=== PATIENT | female | born 1990 ===

== ENCOUNTER 2021-02-02 03:02 | Inpatient (IN) | payer OTHER ==
[~2021-02-02] VITALS: Ht 152.4 cm; Wt 61.4 kg
[2021-02-02] VITALS (55 sets, daily range): BP systolic 89–169; BP diastolic 51–96
[2021-02-02] MEDS ORDERED: PREN1CHW6 PO (03:22)
[2021-02-02] MEDS ORDERED: LR 1,000 ML IV SCH ×2 (04:05→16:35)
[2021-02-02] MEDS ORDERED: OXYTOCIN INJ 10 UNITS/ML VIAL (J2590) IV PRN (04:05)
[2021-02-02] MEDS ORDERED: OXYTOCIN DRIP 30 UNITS in IV 1 EA IV PRN ×5 (04:05→14:30)
[2021-02-02] MEDS ORDERED: LACTATED RINGER'S 1000 ML IV ONE (04:05)
[2021-02-02 04:54] LABS: HEMATOCRIT 33.2 % (36.0-47.0); HEMOGLOBIN 11.6 g/dl (12.0-15.5); MEAN CORPUSCULAR HEMOGLOBIN 30.9 pg (27.0-33.0); MEAN CORPUSCULAR HGB CONC 34.9 g/dl (32.0-36.5); MEAN CORPUSCULAR VOLUME 88.3 fl (80.0-96.0); PLATELET COUNT, AUTOMATED 192 10^3/uL (150-450); RED BLOOD COUNT 3.76 10^6/uL (4.00-5.40); WHITE BLOOD COUNT 13.8 10^3/uL (4.0-10.0)
[2021-02-02] MEDS ORDERED: CALCIUM CARBONATE 500 MG CHEW U/D PO ONE (05:00)
--- NOTE | 2021-02-02 05:05 | HPEPDOC ---
Obstetrical History & Physical General Date of Admission Item Value Date Time White Blood Count 13.8 10^3/uL H 02/02/219 Red Blood Count 3.76 10^6/uL L 02/02/21448 Hemoglobin 11.6 g/dl L 02/02/21448 Hematocrit 33.2 % L 02/02/21448 Mean Corpuscular Volume 88.3 fl 02/02/21448 Mean Corpuscular Hemoglobin 30.9 pg 02/02/21448 Mean Corpuscular Hemoglobin Concent 34.9 g/dl 02/02/21448 Red Cell Distribution Width 11.9 % 02/02/21448 Platelet Count 192 10^3/uL 02/02/21448 Vital Signs Label Value Date Time Patient Temperature 97.6 degrees F 02/02/21318 Temperature Source Temporal 02/02/21318 Pulse 95 02/02/21318 Respiratory Rate 18 bpm 02/02/21318 Blood Pressure Assessment 109/78 (88) 02/02/21318 Source Automatic Cuff (NIBP) Primary Care Physician: Aidan Deutsch MD History of Present Illness 02/02/21 0400 AM G1 PO AT 41 WEEKS ACTIVE LABOR WAS BOOKED IOL CAME IN SPONTANEOUS LABOR. LMP 04/21/20 EDC BY US AT 11 WEEKS 01/26 2021 . 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 Past Medical History Medical History CF 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 , LATENT TB 2006 Surgical History: Other (BREAST BX BENIGN RT., BILATERAL TOENAIL REMOVAL) Family History Significant Family History: Other (MOTHER PE AND ASTHMA, GRAND MOTHER ALS, GRAND FATHER TESTICULAR CANCER, GRAND MERE PANCREATIC CANCER) Social History Social history NON SMOKER NO ETOH NO VAPING TO AD GOOD SUPPORT Marital Status: Family situation: Spouse/partner home Psychosocial History: No pertinent psych hx * Smoker: non-smoker Alcohol: Denies Drugs: denies Abuse Violence Screening Have you been hit/kicked/slapp: No Have you been sexually assault: No Imunizations Tdap status: current Influenza Status: current Allergies Coded Allergies: No Known Allergies (Unverified , 02/02/21) Medications Scheduled Vit37/Iron/Folic Acid (Prenata Chewable Tablet) 1 Each Tab.chew, 1 TAB PO DAILY Physical Examination Physical Examination GENERAL: Alert and oriented times three. BREAST: . ABDOMEN: Gravid and non-tender to touch. FETUS: Is vertex (VTX) by sterile vaginal examination (SVE), fetus is vertex (VTX) by Kun. HEART RATE: Regular rate and rhythm. LUNGS: Clear to auscultation (CTA). EXTREMITIES: No edema. No clonus. Deep tendon reflexes (DTRs) + . Other physical findings NORMOCEPHALIC ATRAUMATIC NECK FULL RANGE OF MOTION, PERRLA, CHEST CLEAR TO BASES NO RALES NO RHONCHI, NO CVA TENDERNESS, SF HEIGHT 40 4 QUADRANT BOWEL SOUNDS CATEGORY 1 STRIP NOW HAD LATES WITH RECOVERY TO BASELINE. NO RASHES LESIONS OR PURITIS, NO MYALGIA NO JOINT PAIN, NO COMPLAINTS OF COUGH WHEEZE NO FREQUENCY URGENCY,NO N/V/C/D/F. NO DIABETIC ISSUES Pertinent Laboratoy Data Blood Type: O- RBC Antibody Screen: Negative HIV: Negative Hepatitis B: Negative Rapid Plasma Reagin: Nonreactive Rubella: Nonreactive Varicella: Immune Chlamydia/Gonorrhea: Negative Group B Streptococcus: Negative Quad Screen Test: Unknown Cystic Fibrosis: Negative Anatomy Ultrasound Ultrasound Date: Oct 07, 2020 Placenta Location: Anterior Normal Anatomy: Yes Placenta Previa: No Estimated Weight (grams): 617 Steroid Therapy Steroid Therapy: No Vaginal Examination Dilation: Fingertip Effacement: 50% Station: -3 Cervical Consistency: Soft Cervical Position: Posterior Presentation: Cephalic presentation Assessment Variability: Moderate Accelerations: Present Decelerations: Late (ON ADMISSION WITH RECOVERY TO BASELINE HYDRATION RESOLVED ISSUE) Tocometer Contractions: Yes Frequency: regular Duration: less than 60 seconds Strength: palpated as moderate Assessment/Plan Assessment 30-year-old (G 1 para (P 0 at 41 weeks by 11 -week ultrasound. Presents to Labor and Delivery (L&D) ACTIVE LABOR Plan Admit and orient. 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 Diet: NPO Group B Streptococcus (GBS) [negative]. Labs and intravenous (IV) per unit protocol. Counseled on Pitocin AUGMENTATION Lactated Ringers (LR): Bolus 1000 mL, PRE EPIDURAL then at 125 mL/hr. Anticipate [normal spontaneous delivery ()]. C-S as appropriate. Labor and Delivery Counseling REVIEWED DELIVERY THROUGH THE VAGINA WITH POSSIBLE ASSISTANCE OF FORCEPS OR VACUUM DEVICES IF NEEDED FOR MATERNAL OR INDICATIONS . THESE CAN ASSIST TO ACHIEVE VAGINAL DELIVERY. AN EPISIOTOMY MAY BE REQUIRED AND MAY REQUIRE REPAIR NEEDED AND REPAIR OF VAGINAL, BLADDER OR BOWEL REPAIR . IN SOME CASES EMERGENCY CS MAY BE REQUIRED WHEN REMOTE FROM DELIVERY FOR OR MATERNAL INDICATIONS. RISK OF CS ARE HEMORRHAGE INFECTION PERFORATION REMOTE BLOOD TRANSFUSION REMOTE HYSTERECTOMY FOR LIFE THREATENING BLEEDING. RISK OF AUGMENTATION MAY INCLUDE TACHYSYSTOLE INCREASE RISK CS UTERINE RUPTURE HEART RATE ABNORMALITIES . USE OF FORCEPS OR VACUUM RISK CEPHALOHEMATOMA, SCRATCHES BRUISING ADMISSION NICU. EXPRESSED UNDERSTANDING 30 MINUTE DISCUSSION SAFE TO PROCEED Aidan Deutsch MD Feb 02, 2021 04:52
[2021-02-02] MEDS ORDERED: LACTATED RINGER'S 1000 ML IV STA (08:48)
[2021-02-02] MEDS ORDERED: OXYTOCIN DRIP 30 UNITS in IV 1 EA IV SCH ×2 (09:10→17:30)
--- NOTE | 2021-02-02 09:33 | IPNPDOC ---
Obstetrical Progress Note Date of Service Feb 02, 2021 Subjective 30 yo at 41w0d with CLEOPATRA of 26 JAN 2021 admitted for latent labor with late decelerations who was scheduled to have IOL for postdates today and is now in labor. She reports that she has been having increasing painful contractions. She has supportive family at the bedside. This morning she has had late decelerations and the EFM strip was reviewed with Dr. Ko, who was in with the patient and her spouse and discussed increase risk for delivery, however would continue trial of labor for vaginal delivery at this time. Risks, benefits, alternatives for section and blood transfusion were discussed between the patient and her spouse and Dr. Ko and the consents were signed. The plan for starting with cook balloon and pitocin were discussed with the patient and pain management was discussed with the patient, as she was previously checked and found to be FT, thick, and high upon arrival to L&D this morning. All questions were answered to her and her spouses satisfaction. Objective Vital Signs Date Time Temp Pulse Resp B/P (MAP) Pulse Ox O2 Delivery O2 Flow Rate FiO2 02/02/21 06:20 98.4 02/02/21 04:59 85 117/62 (80) 02/02/21 03:19 18 Assessment Heart Rate (FHR): 125 Variability: Moderate Accelerations: Present Decelerations: None Tocometer Contractions: Yes Frequency: irregular (every 3-6 minutes) Sterile Vaginal Examination Dilation: 6 cm Effacement (%): 80% Station: -3 Cervical Consistency: Soft Cervical Position: Posterior Postion/Presentation: Cephalic presentation Assessment and Plan Age: 30 : 1 Term: 0 Pre-term: 0 Abortions: 0 Livin Weeks & Days 41w0d Status: Reassuring Group B Streptococcus: Negative Additional Comments Upon cervical exam, patient was found to be 6 cm and alternative plan was discussed with the patient and her spouse for starting IV pitocin at this time. She desires for epidural for pain management at this time. Recommended that after she is comfortable with her epidural, will AROM and placement of internal monitors (FSE and IUPC) for adequate monitoring during labor this way pitocin can be titrated per MVUs and that way if needed for amnioinfusion. Patient and spouse are agreeable to this plan. Dr. Ko was updated on patient status and agrees with this plan MARTHA REVELES CNM Feb 02, 2021 09:33
[2021-02-02] MEDS ORDERED: FENTANYL 2MCG/ML ROPIVACAINE 0.2% IN 0.9% NACL 100ML IVBAG As Ordered ONE (09:55)
[2021-02-02] MEDS ORDERED: REFRIGERATOR IV KEYS XX PRN (10:10)
[2021-02-02] MEDS ORDERED: EPIDURAL/PCA KEYS XX PRN (10:10)
[2021-02-02] MEDS ORDERED: FENTANYL/ROPIVACAINE/NACL BAG 100 ML EPIDURAL SCH (10:10)
[2021-02-02] MEDS ORDERED: diphenhydrAMINE 50MG/ML VIAL (J1200) IV PRN ×2 (10:10→14:51)
[2021-02-02] MEDS ORDERED: ONDANSETRON 4MG/2ML VIAL IV PRN ×3 (10:10→16:35)
[2021-02-02] MEDS ORDERED: NALOXONE INJ 0.4MG/1ML VIAL (J2310 PER 1MG) IV PRN ×3 (10:10→14:51)
[2021-02-02] MEDS ORDERED: EPIDURAL COMMENT XX SCH (10:10)
[2021-02-02] MEDS ORDERED: LACTATED RINGER'S 1000 ML IV PRN (10:10)
[2021-02-02] MEDS: ePHEDrine SULFATE 25 MG/5 ML(5MG/ML) SYRINGE IV PRN ×2 (11:37→11:57)
--- NOTE | 2021-02-02 11:51 | IPNPDOC ---
Obstetrical Progress Note Date of Service Feb 02, 2021 Subjective 30 yo at 41w0d with CLEOPATRA of 26 JAN 2021 admitted for labor. She is comfortable with her epidural. She has supportive family at the bedside. She has no further concerns at this time. Objective Vital Signs Date Time Temp Pulse Resp B/P (MAP) Pulse Ox O2 Delivery O2 Flow Rate FiO2 02/02/21 10:17 81 18 135/72 (93) 97 Room Air 02/02/21 07:35 98.0 AROM for thin meconium stained fluid IUPC and FSE placed without difficulty Pitocin at 2 mu/min Assessment Heart Rate (FHR): 135 Variability: Moderate Accelerations: Present Decelerations: Variable Tocometer Contractions: Yes Frequency: irregular (every 3-6 minutes) Sterile Vaginal Examination Dilation: 6 cm Effacement (%): 80% Station: -2 Cervical Consistency: Soft Cervical Position: Middle Postion/Presentation: Cephalic presentation Assessment and Plan Age: 30 : 1 Term: 0 Pre-term: 0 Abortions: 0 Livin Weeks & Days 41w0d Group B Streptococcus: Negative Anticipate: Vaginal Delivery Additional Comments Will keep MVUs between 250-300 Administer ephedrine for hypotension after her epidural and monitor BP closely Dr. Ko updated on patient's status and is agreeable with plan MARTHA REVELES CNM Feb 02, 2021 11:42
[2021-02-02] MEDS ORDERED: ceFAZolin SOD 2 GM in IV 1 EA IV ONE (14:30)
[2021-02-02] MEDS ORDERED: AZITHROMYCIN INJ 500 MG, VIAL MATE ADAPTER 1 EACH in NS 250 ML IV ONE (14:30)
[2021-02-02] MEDS ORDERED: TRANEXAMIC ACID INJection 1,000 MG in NS 100 ML IV PRN (14:30)
[2021-02-02] MEDS ORDERED: BUPIVACAINE HCL 0.25% 10ML VIAL SC SCH (14:30)
[2021-02-02] MEDS ORDERED: METHYLERGONOVINE MALEATE 0.2 MG/ML VIAL (J2210) IM PRN (14:30)
[2021-02-02] MEDS ORDERED: BICITRA 30ML SOLN UDC PO ONE (14:30)
[2021-02-02] MEDS ORDERED: LIDOCAINE 2% W/EPINEPHRINE 20ML VIAL **PRES FREE As Ordered ONE (14:49)
--- NOTE | 2021-02-02 14:50 | IPNPDOC ---
Obstetrical Progress Note Date of Service Feb 02, 2021 Subjective 30 yo at 41w0d with CLEOPATRA of 26 JAN 2021 admitted for labor and she remains comfortable with her epidural. She has no further complaints at this time. she has supportive family at the bedside. Objective Vital Signs Date Time Temp Pulse Resp B/P (MAP) Pulse Ox O2 Delivery O2 Flow Rate FiO2 02/02/21 12:16 67 18 127/68 (87) 100 Room Air 02/02/21 07:35 98.0 Pitocin has been off and amnioinfusion has been infusing with no resolution of recurrent decelerations. Assessment Heart Rate (FHR): 125 Variability: Moderate Accelerations: Present Decelerations: Late, Variable Tocometer Contractions: Yes (every 3-4 minutes) Sterile Vaginal Examination Dilation: 7 cm (7-8 cm) Effacement (%): 90% Station: -2 Cervical Consistency: Soft Cervical Position: Middle Postion/Presentation: Cephalic presentation Assessment and Plan Age: 30 : 1 Term: 0 Pre-term: 0 Abortions: 0 Livin Weeks & Days 41w0d Group B Streptococcus: Negative Anticipate: Section Additional Comments Dr. Ko is at the bedside and we discussed with the patient and her spouse that pLTCS is recommended at this time as baby is not tolerating course of labor at this time and she is still remote from delivery. Patient and spouse are agreeable to proceeding with pLTCS. MARTHA REVELES CNM Feb 02, 2021 14:50
[2021-02-02] MEDS ORDERED: NALBUPHINE HCL 10 MG/ML AMP (J2300) IV PRN (14:51)
[2021-02-02] MEDS ORDERED: OXYTOCIN 30 UNITS IN 0.9% NaCl 500ML IV BAG (J2590) As Ordered ONE ×2 (14:51→16:24)
[2021-02-02] MEDS ORDERED: METOCLOPRAMIDE INJ 10MG/2ML VIAL (J2765 PER 1) IV PRN ×2 (14:51→16:35)
[2021-02-02] MEDS ORDERED: PHENYLephrine 500MCG 5ML (100MCG/ML) SYRINGE As Ordered ONE (15:11)
[2021-02-02] MEDS ORDERED: ePHEDrine SULFATE 25 MG/5 ML(5MG/ML) SYRINGE As Ordered ONE (15:27)
[2021-02-02] MEDS ORDERED: ONDANSETRON 4MG/2ML VIAL As Ordered ONE (15:27)
[2021-02-02] MEDS ORDERED: KETOROLAC 60MG 2ML VIAL As Ordered ONE (15:27)
[2021-02-02] MEDS ORDERED: MORPHINE PRES-FREE INJ 10 MG/10 ML VIAL (J2274) As Ordered ONE (15:27)
[2021-02-02 15:46] LABS: CORD GAS ABE A -5.7; CORD GAS ABE V -4.7; CORD GAS HCO3 A 20.5 MEQ/L; CORD GAS HCO3 V 20.2 MEQ/L; CORD GAS O2 SAT A 63.1 %; CORD GAS O2 SAT V 77.6 %; CORD GAS PCO2 A 42.7 mmHg; CORD GAS PCO2 V 37.2 mmHg; CORD GAS PH A 7.299 UNITS; CORD GAS PH V 7.352 UNITS; CORD GAS PO2 A 31.8 mmHg; CORD GAS PO2 V 35.1 mmHg; CORD GAS SBC V 20.1 MEQ/L; CORD GAS TCO2 A 21.8 MEQ/L; CORD GAS TCO2 V 21.3 MEQ/L
[2021-02-02] MEDS ORDERED: fentaNYL 100 MCG/2 ML INJECTION (J3010) As Ordered ONE (15:48)
[2021-02-02] MEDS ORDERED: RHOGAM 300 MCG (1500 IU) INJ (J2790) IM SCH (16:20)
[2021-02-02] MEDS ORDERED: ANUSOL HC CREAM 30GM TOP PRN (16:20)
[2021-02-02] MEDS ORDERED: oxyCODONE 5MG TAB PO PRN (16:20)
[2021-02-02] MEDS ORDERED: fentaNYL 100 MCG/2 ML INJECTION (J3010) IV PRN (16:35)
[2021-02-02] MEDS ORDERED: PERCOCET 5MG/325MG TAB PO PRN (16:35)
[2021-02-02] MEDS ORDERED: MEPERIDINE INJ 25 MG/ML VIAL (J2175) IV PRN (16:35)
--- NOTE | 2021-02-02 17:12 | ROOPDOC ---
[facility] [place] Report Of Operation Report of Operation DATE OF PROCEDURE: 02/02/21 PREPROCEDURE DIAGNOSES: Non reasuring heart rate remote from delivery... POSTPROCEDURE DIAGNOSES: same as above.... PROCEDURE PERFORMED: Primary low transverse Delivery. SURGEON: Bear Saab MD SECURITY OFFICERS AND GUARDS: Cayetano Aguilar CNM ANESTHESIA: EPIDURAL ESTIMATED BLOOD LOSS: Approximately 500mL. COMPLICATIONS: NONE. . FINDINGS: NOrmal uterus and bilateral ovaries and tubes SPECIMENS REMOVED: placenta PROCEDURE NOTE: Pfannenstiel incision. low transeverse uterine incision. delivery of male infant 6#10, 3000g with apgars of 8/9. hysterotomy closed in two layers with o-monocryl with 3 figures of eight stiches placed on the edges and midline. good hemostasis obtained. fascia closed with running 0-vicryl. sub closed with 2-0 vicryl interrupted. skin closed with 3-0 monocryl on a lio needle. 2g ancef and 500mg of azithromycin given. DESCRIPTION OF PROCEDURE: The patient was taken to the operating room where epidural anesthesia was found to be adequate. She was then prepped and draped in the normal sterile fashion in the dorsal supine position with a leftward tilt. A Pfannenstiel skin incision was then made with the scalpel and carried through to the underlying layer of fascia. The fascia was incised in the midline and the incision ex tended laterally with the curved Chatman scissors. The superior aspect of the fascial incision was then grasped with the Yolanda clamps, elevated, and the underlying rectus muscles dissected off bluntly with the scalpel used in the midline. Attention was then turned to the inferior aspect of this incision which, in a similar fashion, was grasped, tented up with Kocker clamps, and the rectus muscles dissected off bluntly. The rectus muscles were then in the midline, and the peritoneum identified and entered bluntly. The peritoneal opening was additionally extended superiorly and laterally by manual traction with good visualization of the bladder. the haleigh retractor was then inserted and a bladder flap was created. The lower uterine segment incised in a transverse fashion with the scalpel. The uterine incision was then bluntly extended caudally and cephalad with manual tr action and the infants head delivered atraumatically followed by the body. The cord was clamped and cut and handed to awaiting pediatricians. Cord segment obtained and cord blood sent for gases. The placenta was then removed with gentle traction. The uterus was exteriorized and cleared of all clots and debris. The uterine incision was closed with 0- Monocryl in a running locked fashion. A second imbricating layer with 0- Monocryl was placed with excellent hemostasis. An additional [id number] suture using 0-vicryl was placed at the lateral right aspects of hysterotomy for additional hemostasis. Normal uterus, ovaries and tubes were noted. the retractor was removed then the uterus was returned into the abdomen The gutters were cleared of all clots and the hysterotomy closure was inspected with excellent hemostasis noted again. The fascia was closed with 0-vicryl in a running fashion. The suprafascial area was irrigated and the skin was closed with 3-0 quill monoderm suture. optiforam dressing was applied. The patient tolerated the procedure well. Sponge, lap and needle counts were correct times two. The patient was taken to the recovery room in stable condition. BEAR SAAB MD Feb 02, 2021 17:12
--- NOTE | 2021-02-02 17:59 | IPNPDOC ---
Obstetrical Progress Note Date of Service Feb 02, 2021 Heaven I was consulted by Chad [place] for NRFT Remote for delivery. patient is 7-8cm/90/-2 with light mec with repeatitive late decels. pitocin was turned off. variability noted to be moderate. discussed with patient that since she is a primip, this will likely take another couple hours and it can take up to 4 hrs for her to push, based on the status, we recommand delivery via C/S. patient and expressed understanding and agree with plan of care. gambling monitor to the OR -2G ANCEF AND 500mg of azithromycin. Objective Vital Signs Date Time Temp Pulse Resp B/P (MAP) Pulse Ox O2 Delivery O2 Flow Rate FiO2 02/02/21 12:16 67 18 127/68 (87) 100 Room Air 02/02/21 07:35 98.0 BEAR SAAB MD Feb 02, 2021 16:16
[2021-02-02] MEDS: ACETAMINOPHEN 500 MG TAB PO PRN (18:08)
[2021-02-02] MEDS: DOCUSATE SODIUM 100MG CAPSULE PO SCH (21:33)
[2021-02-02] MEDS: KETOROLAC 30 MG/ML 1ML VIAL IV SCH (22:14)
[2021-02-03 01:53] VITALS: BP 98/57
[2021-02-03] MEDS: KETOROLAC 30 MG/ML 1ML VIAL IV SCH ×2 (04:22→11:42)
[2021-02-03 05:57] VITALS: BP 107/63
--- NOTE | 2021-02-03 06:05 | IPNPDOC ---
Progress Note Date of Service: Feb 03, 2021 Day#: 1 Progress Note SUBJECT: Giancarlo is a 30-year-old 1 now Para 1 POD1 S/P PLCD for NRFHT R emote from delivery of delivery of male infant 6#10, 3000g with apgars of 8/9 who is doing well this morning. . She has been ambulating, voiding spontaneously without issue and tolerating regular diet. Breast feeding without issue. bleeding is like a period at this time OBJECTIVE: VITAL SIGNS: Within normal limits, afebrile. Alert and oriented times three. Breath sounds clear to auscultation. Heart rate: Regular rate and rhythm, no murmurs, rubs or gallops. Abdomen: Fundus firm at U-2. Soft, NTTP. . preo h/h: 11.6/33.2, post op: 10.2/30.3 ASSESSMENT: Giancarlo is a 30-year-old 1 now Para 1 POD1 S/P PLCD for NRFHT Remote from delivery of delivery of male infant 6#10, 3000g with apgars of 8/9 who is doing well this morning. Vitals within normal limits, afebrile, hemodynamically stable with no evidence of infection. PLAN: 2. Tylenol, oxycodone PRN and Motrin for pain. 3. Encourage breast feeding and ambulation. 4. NFP/PULL OUT METHOD for contraception for now. 5. Routine PP visit in 2 and 6 weeks in clinic. 6. Discussed return precautions at length. [facility] Vital Signs Date Time Temp Pulse Resp B/P (MAP) Pulse Ox O2 Delivery O2 Flow Rate FiO2 02/03/21 01:53 98.6 75 16 98/57 (71) 95 Room Air I&O- Last 24 Hours up to 6 AM 02/03/21 06:00 Intake Total 5019.4 ml Output Total 2700 ml Balance 2319.4 ml Laboratory Data 24H LABS Laboratory Tests 2 02/02/21 15:36: Cord Arterial Blood pH 7.299, Cord Arterial Blood PCO2 42.7, Cord Arterial Blood PO2 31.8, Cord Arterial Blood HCO3 20.5, Cord Arterial Blood Total CO2 21.8, Cord Arterial Blood Base Excess -5.7, Cord Arterial Base Excess (Standard 19.0, Cord Arterial Bld Oxygen Saturation 63.1, Cord Venous Blood pH 7.352, Cord Venous Blood PCO2 37.2, Cord Venous Blood PO2 35.1, Cord Venous Blood HCO3 20.2, Cord Venous Blood Total CO2 21.3, Cord Venous Base Excess (Actual) -4.7, Cord Venous Base Excess (Standard) 20.1, Cord Venous Blood Oxygen Saturation 77.6 BEAR SAAB MD Feb 03, 2021 6:05 am
[2021-02-03 07:00] LABS: HEMATOCRIT 30.3 % (36.0-47.0); HEMOGLOBIN 10.2 g/dl (12.0-15.5); MEAN CORPUSCULAR HEMOGLOBIN 30.6 pg (27.0-33.0); MEAN CORPUSCULAR HGB CONC 33.7 g/dl (32.0-36.5); PLATELET COUNT, AUTOMATED 163 10^3/uL (150-450); RED BLOOD COUNT 3.33 10^6/uL (4.00-5.40); WHITE BLOOD COUNT 11.6 10^3/uL (4.0-10.0)
[2021-02-03] MEDS: PRENATAL VITAMINS CHEWABLE TABLET PO SCH (08:29)
[2021-02-03] MEDS: SIMETHICONE 80MG CHEW TAB PO PRN (08:29)
[2021-02-03] MEDS: DOCUSATE SODIUM 100MG CAPSULE PO SCH ×2 (08:29→20:43)
[2021-02-03] MEDS: oxyCODONE 5MG TAB PO PRN ×2 (08:30→20:43)
[2021-02-03] MEDS: ACETAMINOPHEN 500 MG TAB PO PRN (08:31)
[2021-02-03 10:00] VITALS: BP 103/73
[2021-02-03 18:00] VITALS: BP 123/73
[2021-02-03] MEDS: IBUPROFEN 800 MG TAB PO SCH (19:13)
[2021-02-03 22:00] VITALS: BP 122/70
[2021-02-04 02:00] VITALS: BP 102/65
[2021-02-04] MEDS: IBUPROFEN 800 MG TAB PO SCH ×2 (02:25→09:15)
--- NOTE | 2021-02-04 03:15 | IPNPDOC ---
Progress Note Date of Service: Feb 04, 2021 Progress Note DISREGARD THIS NOTE DISREGARD THIS NOTE DISREGARD THIS NOTE DISREGARD THIS NOTE DISREGARD THIS NOTE DISREGARD THIS NOTE VS, I&O, 24H, Fishbone Vital Signs/I&O Vital Signs Date Time Temp Pulse Resp B/P (MAP) Pulse Ox O2 Delivery O2 Flow Rate FiO2 02/04/21 02:00 99.1 84 14 102/65 (77) 96 Room Air I&O- Last 24 Hours up to 6 AM 02/04/21 06:00 Output Total 425 ml Balance -425 ml Laboratory Data 24H LABS Laboratory Tests 2 02/03/21 06:43: Nucleated Red Blood Cells % (auto) 0.0 CBC/BMP Laboratory Tests 02/03/21 06:43 LIZBETH COHEN DO Feb 04, 2021 03:15
--- NOTE | 2021-02-04 03:17 | OBDS ---
[facility] Obstetrical Discharge Sum. A/P, Post Course List any complications DISREGARD THIS NOTE DISREGARD THIS NOTE DISREGARD THIS NOTE DISREGARD THIS NOTE DISREGARD THIS NOTE DISREGARD THIS NOTE LIZBETH COHEN DO Feb 04, 2021 03:17
[2021-02-04 05:54] VITALS: BP 100/72
[2021-02-04] MEDS: PRENATAL VITAMINS CHEWABLE TABLET PO SCH (08:32)
[2021-02-04] MEDS: SIMETHICONE 80MG CHEW TAB PO PRN (08:32)
[2021-02-04] MEDS: DOCUSATE SODIUM 100MG CAPSULE PO SCH (08:32)
[2021-02-04 10:13] VITALS: BP 177/73
== END 2021-02-04 15:15 | disposition home or self-care (01) | DRG 773 ==
LOC: M LDO 03:02 → M LDI 04:18 → M OBS 17:45
PROVIDERS: ADMIT Obstetrics & Gynecology; ATTEND Obstetrics & Gynecology
PROC: 10907ZC Drainage of Amniotic Fluid, Therapeutic from Products of Conception, Via Natural or Artificial Opening (ICD-10-PCS; 2021-02-02)
PROC: 10D00Z1 Extraction of Products of Conception, Low, Open Approach (ICD-10-PCS; principal; 2021-02-02 14:53)
DX: O48.0 Post-term pregnancy (principal); Z3A.41 41 weeks gestation of pregnancy; Z37.0 Single live birth; O76 Abnormality in fetal heart rate and rhythm complicating labor and delivery; O77.0 Labor and delivery complicated by meconium in amniotic fluid